=== PATIENT | male | born 1995 | race Caucasian/White ===

== ENCOUNTER 2025-05-10 14:03 | Emergency (ER) | payer MEDICAID, OTHER ==
[~2025-05-10] VITALS: Ht 185.4 cm; Wt 81.8 kg
[2025-05-10 14:07] VITALS: BP 134/80; PULSE 96; RESP 18; TEMP 98.8; O2SAT 99
[2025-05-10] MEDS ORDERED: ALBU18HF12 IH (14:14)
[2025-05-10] MEDS ORDERED: BUPR1TAB46 SL (14:14)
[2025-05-10] MEDS: BUPRENORPHINE HCL/NALOXONE HCL 8-2 MG SUBLINGUAL TABLET SL ONE (16:50)
[2025-05-10] MEDS: ALBUTEROL SULFATE HFA 90 MCG/PUFF 8 GM INHALER IH ONE (17:02)
== END 2025-05-10 17:06 | disposition home or self-care (01) ==
LOC: EMS 14:05
DX: F11.23 Opioid dependence with withdrawal (principal); J45.909 Unspecified asthma, uncomplicated; F17.210 Nicotine dependence, cigarettes, uncomplicated; Z51.81 Encounter for therapeutic drug level monitoring; Z79.899 Other long term (current) drug therapy
CPT/HCPCS: 99283; 94640; J3535